=== PATIENT | male | born 1955 | race African-American/Black ===

== ENCOUNTER 2016-09-02 10:44 | Emergency (ER) | payer OTHER ==
[2016-09-02 10:49] VITALS: BP 160/89; PULSE 73; TEMP 99; BMI 31.4
--- NOTE | 2016-09-02 11:27 | PDOC ---
History of Present Illness - General Chief Complaint: Pain, Acute Stated Complaint: LEFT SHOULDER PAIN Time Seen by Provider: 09/02/16 10:48 History Source: Patient Exam Limitations: No Limitations - History of Present Illness Initial Comments: 09/02/16 11:14 61 y/o male with acute worsening of left shoulder pain. 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 Pain is described as burning in nature and is localized to the left deltoid and and left AC joint region. He had an initial injury to the same shoulder approximately 7 years ago due to the same mechanism. Over the years it has progressively gotten worse and occasionally awakens him from sleep but usually resolves rather quickly. Pain today is worse than previous and hasn' t resolved. PMH:NIDDM PSH: Meds:Ada Thompson ALL: PCN Social: No EtOH or tobacco GENERAL/CONSTITUTIONAL: No: fever, chills, weakness, loss of appetite. MUSCULOSKELETAL: Yes: left shoulder pain SKIN: No: lesions, pallor, rash or easy bruising. GENERAL: The patient is in no acute distress. HEAD: Normal with no signs of trauma. EXTREMITIES: (+) left shoulder pain NEUROLOGICAL: Cranial nerves II through XII grossly intact. Normal speech. No focal neurological deficits. MUSCULOSKELETAL: (+) left shoulder pain, (+) abduction (+) adduction, SKIN: no erythema 09/02/16 11:56 Past History - Past Medical History Allergies/Adverse Reactions: Allergies Allergy/AdvReac Type Severity Reaction Status Date / Time Penicillins Allergy Verified 09/02/16 10:45 Home Medications: Ambulatory Orders Acetaminophen W/ Codeine #3 [Tylenol # 3 -] 1 tab PO Q6H PRN #15 tablet MDD 4 Canagliflozin [Invokana] 100 mg PO DAILY 09/02/16 Methocarbamol [Robaxin -] 500 mg PO TID PRN #21 tablet 09/02/16 Diabetes: Yes HTN: Yes Hypercholesterolemia: Yes - Psycho/Social/Smoking Cessation Hx Anxiety: No Suicidal Ideation: No Smoking Status: Yes Smoking History: Never smoked Number of Cigarettes Smoked Daily: 0 Hx Alcohol Use: No Drug/Substance Use Hx: No Substance Use Type: None *Physical Exam - Vital Signs Last Vital Signs Temp Pulse Resp BP Pulse Ox 99 F 73 17 160/89 98 09/02/16 10:45 09/02/16 10:45 09/02/16 10:45 09/02/16 10:45 09/02/16 10:45 Medical Decision Making - Medical Decision Making 09/02/16 12:00 Left shoulder x ray Examination consistent with possible rotator cuff injury Pt has appointment with Orthopedist in 4 days I have implored him to keep this appointment Return to the ER for any other concerns or complaints *DC/Admit/Observation/Transfer Diagnosis at time of Disposition: Shoulder injury Qualifiers: Encounter type: initial encounter Laterality: left Qualified Code(s): S49.92XA - Unspecified injury of left shoulder and upper arm, initial encounter - Discharge Dispostion Disposition: HOME Condition at time of disposition: Stable Admit: No - Patient Instructions Printed Discharge Instructions: DI for Shoulder Sprain, DI for Shoulder Pain Additional Instructions: Return to the emergency department immediately with ANY new, persistent or worsening symptoms. Continue any medications as previously prescribed by your physician. You should follow up with your primary doctor as soon as possible regarding today's emergency department visit. . Please make sure your doctor reviews the results of your emergency evaluation. Thank you for coming to the [facility] today for your care. It was a pleasure to see you today. Please note that your evaluation is INCOMPLETE until you follow-up with your doctor. - Post Discharge Activity Work/School Note: Back to Work
== END 2016-09-02 12:12 | disposition home or self-care (01) ==
LOC: FER 10:44
DX: S49.92XA Unspecified injury of left shoulder and upper arm, initial encounter (principal); X58.XXXA Exposure to other specified factors, initial encounter; Y93.89 Activity, other specified; Y92.410 Unspecified street and highway as the place of occurrence of the external cause; Y99.0 Civilian activity done for income or pay; E11.9 Type 2 diabetes mellitus without complications; I10 Essential (primary) hypertension; E78.00 Pure hypercholesterolemia, unspecified
CPT/HCPCS: 73030-TC-LT; 99281-25

== ENCOUNTER 2018-02-19 11:34 | Emergency (ER) | payer OTHER, BC ==
[2018-02-19 12:02] VITALS: BP 165/83; PULSE 72; TEMP 98.9; BMI 32.3
[2018-02-19] MEDS ORDERED: ACETAMINOPHEN 500 MG TABLET (FP) PO ONE (12:04)
--- NOTE | 2018-02-19 12:04 | PDOC ---
History of Present Illness - General Chief Complaint: Injury Stated Complaint: RIGHT HAND INJURY Time Seen by Provider: 02/19/18 11:55 History Source: Patient Exam Limitations: No Limitations - History of Present Illness Initial Comments: 02/19/18 11:56 This is a 62 YOM with h/o NIDDM and bilateral shoulder replacement last year with pins indwelling now, [id number], works with garbage/recycling, who presents about 30 minutes s/p work-related injury (right hand laceration). He got the right palm caught between a garbage can and the garbage truck and suffered a flap-shaped laceration which is about 1.5 cm in length. He states that the cut likely got dirty and he did not have the ability to rinse it out or wash it until he arrived here. He has slight numbness to the tip of the right 5th finger which is the side of the palm that the laceration is on. He denies any additional injuries sustained as a result of this incident. He denies any other recent symptoms of illness. Past History - Past Medical History Allergies/Adverse Reactions: Allergies Allergy/AdvReac Type Severity Reaction Status Date / Time Penicillins Allergy Verified 02/19/18 11:47 Home Medications: Ambulatory Orders Canagliflozin [Invokana] 100 mg PO DAILY 09/02/16 Amlodipine Besylate [Norvasc -] 5 mg PO DAILY 02/19/18 Linagliptin/Metformin HCl [Jentadueto 2.5 mg-1000 mg Tab] 1 each PO BID Diabetes: Yes HTN: Yes Hypercholesterolemia: Yes - Suicide/Smoking/Psychosocial Hx Smoking Status: Yes Smoking History: Never smoked Number of Cigarettes Smoked Daily: 0 Hx Alcohol Use: No Drug/Substance Use Hx: No Substance Use Type: None Review of Systems - Review of Systems Able to Perform ROS?: Yes Constitutional: No: Chills, Fever, Unexplained wgt Loss HEENTM: No: Nose Congestion, Throat Pain Respiratory: No: Cough, Shortness of Breath Cardiac (ROS): No: Chest Pain, Palpitations ABD/GI: No: Constipated, Diarrhea, Nausea, Vomiting : No: Burning, Dysuria Musculoskeletal: No: Back Pain, Neck Pain Integumentary: Yes: Other (right palm small laceration). No: Bruising, Rash Neurological: Yes: Numbness (minimal to right 5th finger). No: Headache, Tingling, Weakness, Dizziness Endocrine: No: Unexplained Weight Gain, Unexplained Weight Loss *Physical Exam - Vital Signs Initial Vital Signs Temp Pulse Resp BP Pulse Ox 98.9 F 72 16 165/83 100 02/19/18 11:36 02/19/18 11:36 02/19/18 11:36 02/19/18 11:36 02/19/18 11:36 02/19/18 12:06 GENERAL: nontoxic and well-appearing pleasant adult male, nourished, A/Ox4, no acute distress, speaking in full sentences, answers questions appropriately, appears comfortable HEENT: PERRLA, EOMI, moist mucous membranes, no posterior pharyngeal erythema, no tonsillar swelling or exudates, no cervical lymphadenopathy NECK: No midline ttp, no spinal stepoff or deformity, full ROM, supple CARDIOVASCULAR: Regular rate and rhythm, normal S1S2, MGR, radial and DP pulses 2+ and symmetric, capillary refill <2 seconds, extremities warm and well- perfused Chest wall: Normal appearance, no rash, no bruising, no costal stepoff or deformity, nontender to compression LUNGS/RESPIRATORY: No respiratory distress, normal and symmetric chest movements during respirations, lungs CTA bilaterally, equal breath sounds, no cyanosis, no nail clubbing GI/ABDOMEN: Normal symmetric appearance, normoactive bowel sounds, soft, no tenderness to palpation, no midline pulsatile masses, no palpated organomegaly BACK: No midline ttp or stepoff or deformity of thoracic or lumbar spine EXTREMITIES: distal pulses 2+, warm and well-perfused, no LE edema SKIN: Right mid-hypothenar eminence with flap laceration with total laceration length of 2.7 cm, flap tissue appears slightly pale but viable, skin otherwise warm and dry, no pallor, no jaundice, no bruising, no rash, no skin breakdown NEUROLOGICAL: GCS 15, CN II-XII grossly intact, ambulating with normal gait, moving all extremities, 5/5 strength proximally and distally, no facial droop, minimally decreased sensation right 5th finger pad but good cap refill, no decreased sensation Procedures - Laceration/Wound Repair Right Anterior Hand 1st digit Wound Length: 2.6 to 5.0 cm Wound Explored: clean, no foreign body present Wound's Depth, Shape: flap Irrigated w/ Saline: Yes Betadine Prep: No Anesthesia: 1% Lidocaine Amount of Anesthetic (ccs): 2 Wound Repaired With: Sutures Suture Size/Type: 4:0, nylon Number of Sutures: 5 Progress: 02/19/18 13:16 Patient tolerated well, hemostasis achieved, good approximation of edges, no complications Medical Decision Making - Medical Decision Making 02/19/18 12:09 Pt p/w laceration to the right palm sustained while at work. No e/o tendon, ligament, or bony injury. No obvious FB or debris. Last tDaP was 2012. Initial Vital Signs Temp Pulse Resp BP Pulse Ox 98.9 F 72 16 165/83 100 02/19/18 11:36 02/19/18 11:36 02/19/18 11:36 02/19/18 11:36 02/19/18 11:36 Exam: As noted in Physical Exam section. DDX IBNLT: Simple skin/soft tissue laceration, tendon/ligament involvement, bony involvement, larger blood vessel injury, retained FB, wound contamination with risk for infection, etc. W/U ordered: XR to r/o FB and bony involvement TX ordered: None initially (though lac will be repaired) XR: No FB, no fracture or other bony involvement. Laceration numbed, cleaned, repaired without issue as noted in Procedures section. Hemostasis achieved, good approximation, Bacitracin applied and wound dressed. 02/19/18 13:16 The Pts laceration has been repaired without issue, ppx abx not indicated. Workup is not concerning for emergency-level pathology at this time. The Pt is appropriate for discharge with close outpatient follow up. They are comfortable with this plan and will follow up with their primary care provider in 1-3 days. He is given specific instructions to care for his wound repair. Work note is given as requested. He will follow up with [facility] as well. Specific return precautions are discussed and they will come back to the ER if necessary. *DC/Admit/Observation/Transfer Diagnosis at time of Disposition: Work related injury Laceration of palm Qualifiers: Encounter type: initial encounter Laterality: right Qualified Code(s): S61.411A - Laceration without foreign body of right hand, initial encounter - Discharge Dispostion Disposition: HOME Condition at time of disposition: Stable Decision to Admit order: No - Referrals Referrals: Radha Browne MD [Primary Care Provider] - - Patient Instructions Printed Discharge Instructions: DI for Laceration Repair -- Simple Additional Instructions: YOU WERE SEEN IN THE ER FOR A SKIN LACERATION. WE DID AN EXAM, IMAGING STUDIES, CLEANED AND REPAIRED THE LACERATION, AND MADE SURE YOUR TETANUS VACCINATION WAS UP TO DATE (IT ALREADY WAS). AFTER OUR ASSESSMENT, WE DO NOT BELIEVE YOU ARE HAVING A MEDICAL EMERGENCY AT THIS TIME, AND WE BELIEVE YOU ARE SAFE TO GO HOME. PLEASE READ THE INFORMATION IN THIS PACKET ON HOW TO CARE FOR YOUR LACERATION. KEEP THE DRESSING ON YOUR WOUND FOR 24 HOURS AND KEEP THIS DRESSING CLEAN AND DRY. AFTER 24 HOURS, YOU CAN TAKE THE DRESSING OFF AND YOU CAN SHOWER AND GET THE WOUND WET, BUT DO NOT SCRUB THE WOUND AND DO NOT SOAK IT IN WATER. DO NOT GO SWIMMING OR TAKE A BATH OR SUBMERGE THE WOUND IN STANDING WATER. PUT A THIN LAYER OF ANTIBIOTIC OINTMENT ON THE WOUND ONCE IN THE MORNING AND ONCE IN THE EVENING. PLEASE FOLLOW UP WITH YOUR PRIMARY CARE PROVIDER TO HAVE THE SUTURES REMOVED, OR RETURN HERE TO THE ER TO HAVE THEM REMOVED. IF YOU HAVE ANY NEW OR WORSENING SYMPTOMS, ESPECIALLY INCREASING PAIN AND REDNESS TO THE AREA OR OTHER SIGNS OF INFECTION LIKE FEVER, PLEASE COME BACK TO THE ER AT ANY TIME ( 24 HOURS A DAY). IF YOU ARE HAVING SEVERE OR LIFE THREATENING SYMPTOMS, OR SYMPTOMS THAT MAKE IT UNSAFE TO DRIVE OR HAVE SOMEONE DRIVE YOU, PLEASE CALL 911. - Post Discharge Activity Forms/Work/School Notes: Back to Work
[2018-02-19] MEDS ORDERED: ACETAMINOPHEN 325 MG TABLET (FP) ONE (12:09)
--- NOTE | 2018-02-19 12:12 | PDOC ---
Attending Attestation - Resident Resident Name: Lissy Fagan - ED Attending Attestation I have performed the following: I have examined & evaluated the patient, The case was reviewed & discussed with the resident, I agree w/resident's findings & plan, Exceptions are as noted - HPI HPI: 02/19/18 12:07 62yo M hx NIDDM, HTN presents to the ED with R palm laceration. Pt reporting numbness just to tip of R 5th finger. No other injuries. Denies F/C, CP/SOB. Last tdap 5yrs ago. - Physicial Exam PE: 02/19/18 12:08 RUE: 0.75x0.75cm flap hemostatic laceration to hypothenar eminence. Normal sensation in R hand, including finger tips. Normal strength with all finger abduction. Able to give thumbs up, okay sign and adduct thump. 2+ radial pulse. WWP. - Medical Decision Making 02/19/18 12:11 62yo M presents to the ED with L palmar lac. Tdap UTD. Will obtain XR to r/o FB , then irrigate and repair lac. 02/19/18 13:01 XR neg for FB Lac cleaned out, repaired by Dr. Fagan. See her note for details Pt feels well. Scar counseling provided I discussed the physical exam findings, ancillary test results and final diagnoses with the patient. I answered all of the patient's questions. The patient was satisfied with the care received and felt comfortable with the discharge plan and treatment plan. The patient will call their primary care physician within 24 hours to arrange follow-up and will return to the Emergency Department with any new, persistent or worsening symptoms.
[2018-02-19] MEDS ORDERED: predniSONE 20 MG TABLET (UD) ONE (12:43)
[2018-02-19] MEDS ORDERED: ALBUTEROL SO4 2.5/IPRATROPIUM 0.5 INH SOL 3 ML VIAL.NEB. NEB ONE (12:43)
[2018-02-19] MEDS ORDERED: predniSONE 10 MG TABLET (UD) ONE (12:43)
== END 2018-02-19 13:21 | disposition home or self-care (01) ==
LOC: FER 11:34
PROC: 0HQFXZZ Repair Right Hand Skin, External Approach (ICD-10-PCS; principal; 2018-02-19)
DX: S61.411A Laceration without foreign body of right hand, initial encounter (principal); W22.8XXA Striking against or struck by other objects, initial encounter; Y93.89 Activity, other specified; Y92.410 Unspecified street and highway as the place of occurrence of the external cause; Y99.0 Civilian activity done for income or pay; E11.9 Type 2 diabetes mellitus without complications; I10 Essential (primary) hypertension; E78.00 Pure hypercholesterolemia, unspecified
CPT/HCPCS: 73130-TC-RT-FY; 99282-25

== ENCOUNTER → 2018-09-26 | Day surgery (SDC) | payer BC ==
[~2018-09-26] MED LIST: LIDOCAINE HCL/PF 2% SDV 5ML VIAL ONE; PROPOFOL 20 ML ONE
[2018-09-26 09:14] VITALS: BMI 32.3
[2018-09-26 11:03] VITALS: TEMP 98.2
[2018-09-26 11:18] VITALS: BP 144/79; PULSE 70
== END | disposition home or self-care (01) ==
LOC: FASU-ENDO 08:41
PROVIDERS: ATTEND Internal Medicine Gastroenterology
PROC: 0DJD8ZZ Inspection of Lower Intestinal Tract, Via Natural or Artificial Opening Endoscopic (ICD-10-PCS; principal; 2018-09-26 10:21)
DX: Z86.010 Personal history of colon polyps (principal); K64.8 Other hemorrhoids
CPT/HCPCS: 82962

== ENCOUNTER 2019-01-30 08:26 | Day surgery (SDC) | payer BC ==
[2018-11-30 15:20] VITALS: BMI 32.3
[2019-01-30] MEDS ORDERED: LIDOCAINE HCL/PF 2% SDV 5ML VIAL ONE (11:29)
[2019-01-30] MEDS ORDERED: PROPOFOL 20 ML ONE (11:29)
[2019-01-30 13:25] VITALS: TEMP 97.6
[2019-01-30 13:29] VITALS: BP 153/92; PULSE 60
--- NOTE | 2019-02-01 18:45 | PATH ---
Surgical Pathology Report Patient Name: KOBY EDDY [facility]. Rec. #: [id number] /Age/Gender: 1955 (Age: 63) / M Account: [id number] Location: [facility] Taken: 01/30/2019 Received: 01/30/2019 Reported: 02/01/2019 Physicians: Nelda Olivarez M.D. Specimen(s) Received A: POLYPECTOMY PROXIMAL DESCENDING COLON B: POLYPECOMY DESCENDING COLON Clinical History Surveillance colonoscopy Postoperative diagnosis: colon polyps, hemorrhoids Final Diagnosis A. PROXIMAL DESCENDING COLON, POLYPECTOMY: TUBULAR ADENOMA, FRAGMENTS. B. DESCENDING COLON, POLYPECTOMY: TUBULAR ADENOMA. Electronically Signed Nelda De León M.D. Gross Description A. Received in formalin, labeled "proximal descending colon polypectomy" are 5 radford, irregular portions of soft tissue ranging in size from 0.2-0.7 cm. in greatest dimension. Base of the polyps are inked in blue. The specimens are submitted in toto in 2 cassettes as follows: 1- largest polyp, bisected, 2- smaller polyps. B. Received in formalin, labeled "descending colon polypectomy" are 3 radford, irregular portions of soft tissue ranging in size from 0.1-0.4 cm. in greatest dimension. The specimens are submitted in toto in one cassette. MLSZ/01/31/2019 sanml/01/31/2019
== END 2019-01-30 13:40 | disposition home or self-care (01) ==
LOC: FASU-ENDO 08:26
PROVIDERS: ATTEND Internal Medicine Gastroenterology
PROC: 0DBM8ZX Excision of Descending Colon, Via Natural or Artificial Opening Endoscopic, Diagnostic (ICD-10-PCS; 2019-01-30)
PROC: 0DBK8ZX Excision of Ascending Colon, Via Natural or Artificial Opening Endoscopic, Diagnostic (ICD-10-PCS; principal; 2019-01-30 11:35)
DX: Z86.010 Personal history of colon polyps (principal); D12.4 Benign neoplasm of descending colon; K64.1 Second degree hemorrhoids
CPT/HCPCS: 82962; 88305-TC

== ENCOUNTER 2021-11-17 09:03 | Day surgery (SDC) | payer OTHER, BC ==
[2021-11-10 13:56] VITALS: BMI 29.8
[2021-11-17 09:18] VITALS: TEMP 97.7
[2021-11-17 12:08] VITALS: PULSE 60
[2021-11-17 12:20] VITALS: BP 118/48
== END 2021-11-17 12:41 | disposition home or self-care (01) ==
LOC: FASU-ENDO 09:03
PROVIDERS: ATTEND Internal Medicine Gastroenterology
PROC: 0DJD8ZZ Inspection of Lower Intestinal Tract, Via Natural or Artificial Opening Endoscopic (ICD-10-PCS; principal; 2021-11-17 11:44)
DX: Z12.11 Encounter for screening for malignant neoplasm of colon (principal); Z86.010 Personal history of colon polyps; K64.1 Second degree hemorrhoids
CPT/HCPCS: 82962

== ENCOUNTER 2022-06-02 04:31 | Day surgery (SDC) | payer OTHER, BC ==
[2022-05-26 16:26] VITALS: BMI 29.0
[2022-06-02] MEDS ORDERED: FENTANYL CITRATE/PF 50 MCG/ML VIAL ONE (10:44)
[2022-06-02] MEDS ORDERED: MIDAZOLAM HCL 2 MG/2 ML SINGLE DOSE VIAL ONE (10:44)
[2022-06-02] MEDS ORDERED: FENTANYL CITRATE/PF 50 MCG/ML VIAL IVPUSH ONE (11:05)
[2022-06-02 12:06] VITALS: BP 186/79; PULSE 61; RESP 20; TEMP 98.1
== END 2022-06-02 13:00 | disposition home or self-care (01) ==
LOC: JRADIR 04:31
PROVIDERS: ATTEND Internal Medicine
PROC: 0TB13ZX Excision of Left Kidney, Percutaneous Approach, Diagnostic (ICD-10-PCS; principal; 2022-06-02)
DX: I12.0 Hypertensive chronic kidney disease with stage 5 chronic kidney disease or end stage renal disease (principal); Z53.8 Procedure and treatment not carried out for other reasons
CPT/HCPCS: 50200

== ENCOUNTER 2023-05-19 11:00 | Inpatient (IN) | payer OTHER, BC ==
[2023-05-19 11:59] LABS: BASO % 1.2 % (0-2.0); EOS % 1.6 % (0-4.5); HEMATOCRIT 19.1 % (35.4-49); LYMPH % 9.8 % (8-40); MCH 26.4 pg (25.7-33.7); MEAN CELL VOLUME 82.5 fl (80-96); MEAN PLT VOLUME 7.8 fl (7.5-11.1); MONO % 10.6 % (3.8-10.2); NEUT % 76.8 % (42.8-82.8); PLATELET COUNT 255 10^3/uL (134-434); RBC 2.32 M/mm3 (4.00-5.60); RDW 17.1 % (11.9-15.9); WHITE BLOOD COUNT 5.9 K/mm3 (4.0-10.0)
[2023-05-19 12:06] LABS: HEMOGLOBIN 6.1 GM/dL (11.7-16.9); INR 1.19 (0.83-1.09); PROTHROMBIN TIME (PATIENT) 13.8 SEC (9.7-13.0)
[2023-05-19 12:09] LABS: ACTIVATED PTT 31.2 SECONDS (25.2-36.5)
[2023-05-19 12:43] LABS: CHLORIDE 114 mmol/L (98-107); POTASSIUM 5.1 mmol/L (3.5-5.1); SODIUM 139 mmol/L (136-145)
[2023-05-19 12:47] LABS: ALBUMIN 2.9 g/dl (3.4-5.0); ANION GAP 8 mmol/L (4-13); BLOOD UREA NITROGEN 80.6 mg/dL (7-18); CO2 17 mmol/L (21-32); GLUCOSE,RANDOM 131 mg/dL (74-106)
[2023-05-19 12:50] LABS: SGOT/AST 9 U/L (15-37); SGPT/ALT 10 U/L (13-61)
[2023-05-19 12:51] LABS: ALK PHOS 73 U/L (45-117); BILIRUBIN,TOTAL 0.2 mg/dL (0.2-1); TOT PROT 5.9 g/dl (6.4-8.2)
[2023-05-19 13:06] LABS: CALCIUM 6.8 mg/dL (8.5-10.1); CREATININE 10.2 mg/dL (0.55-1.3)
[2023-05-19] MEDS ORDERED: ACETAMINOPHEN 325 MG TABLET (FP) PO PRN (14:50)
[2023-05-19] MEDS ORDERED: hydrALAZINE HCL 50 MG TABLET (FP) PO ONE (17:30)
[2023-05-19 18:07] VITALS: BMI 29.2
[2023-05-19] MEDS ORDERED: CALCIUM GLUCONATE 10% - 1,000 MG/10 ML VIAL IVPB ONE (18:20)
[2023-05-19] MEDS ORDERED: hydrALAZINE HCL 20 MG/ML VIAL IVPUSH ONE (20:45)
[2023-05-19] MEDS: hydrALAZINE HCL 50 MG TABLET (FP) PO SCH (21:44)
[2023-05-19] MEDS ORDERED: HEPARIN NA (PORCINE) 5,000 UNITS/ML 1ML VIAL SQ SCH (22:00)
[2023-05-20] MEDS: hydrALAZINE HCL 50 MG TABLET (FP) PO SCH ×3 (06:36→23:07)
[2023-05-20 07:16] LABS: EOS % 1.8 % (0-4.5); HEMATOCRIT 24.3 % (35.4-49); HEMOGLOBIN 8.1 GM/dL (11.7-16.9); LYMPH % 9.1 % (8-40); MCH 27.7 pg (25.7-33.7); MCHC 33.2 g/dl (32.0-35.9); MEAN CELL VOLUME 83.5 fl (80-96); MEAN PLT VOLUME 8.1 fl (7.5-11.1); MONO % 10.2 % (3.8-10.2); NEUT % 77.9 % (42.8-82.8); PLATELET COUNT 230 10^3/uL (134-434); RBC 2.92 M/mm3 (4.00-5.60); WHITE BLOOD COUNT 6.8 K/mm3 (4.0-10.0)
[2023-05-20] MEDS ORDERED: ACETAMINOPHEN 325 MG TABLET (FP) PO PRN ×2 (07:25→14:08)
[2023-05-20 07:31] LABS: CHLORIDE 113 mmol/L (98-107); POTASSIUM 5.5 mmol/L (3.5-5.1); SODIUM 138 mmol/L (136-145)
[2023-05-20 07:55] LABS: ALBUMIN 2.8 g/dl (3.4-5.0); ANION GAP 9 mmol/L (4-13); BLOOD UREA NITROGEN 77.6 mg/dL (7-18); CO2 15 mmol/L (21-32); GLUCOSE,RANDOM 89 mg/dL (74-106); MAGNESIUM 1.8 mg/dL (1.8-2.4)
[2023-05-20 07:58] LABS: PHOSPHOROUS 6.6 mg/dL (2.5-4.9); SGOT/AST 11 U/L (15-37); SGPT/ALT 8 U/L (13-61)
[2023-05-20 07:59] LABS: BILIRUBIN,TOTAL 0.4 mg/dL (0.2-1); TOT PROT 5.8 g/dl (6.4-8.2)
[2023-05-20 08:01] LABS: ALK PHOS 73 U/L (45-117)
[2023-05-20 08:48] LABS: CREATININE 10.1 mg/dL (0.55-1.3); IRON SERUM 64 ug/dL (50-175); TOTAL IRON BINDING CAPACITY 171 ug/dL (250-450)
[2023-05-20] MEDS ORDERED: NIFEdipine E.R. 30 MG TABLET PO SCH (10:00)
[2023-05-20] MEDS ORDERED: HEPARIN NA (PORCINE) 5,000 UNITS/ML 1ML VIAL SQ SCH (10:00)
[2023-05-20] MEDS ORDERED: SODIUM ZIRCONIUM CYCLOSILICATE (LOKELMA) 5 GM PACKET PO SCH (12:00)
[2023-05-20] MEDS ORDERED: SODIUM CHLORIDE 250 ML IV PRN ×2 (12:27→14:08)
[2023-05-20] MEDS ORDERED: LIDOCAINE HCL 1%, 10 MG/ML (20ML VIAL) ONE (12:57)
[2023-05-20] MEDS ORDERED: LIDOCAINE HCL/PF 2% SDV 5ML VIAL ONE (12:58)
[2023-05-20] MEDS ORDERED: ONDANSETRON 4 MG/2 ML VIAL ONE (12:58)
[2023-05-20] MEDS ORDERED: MIDAZOLAM HCL 2 MG/2 ML SINGLE DOSE VIAL ONE (12:58)
[2023-05-20] MEDS ORDERED: PROPOFOL 20 ML ONE (12:58)
[2023-05-20] MEDS ORDERED: ceFAZolin SODIUM 1 GM VIAL ONE (13:19)
[2023-05-20] MEDS ORDERED: ceFAZolin SODIUM 1 GM VIAL IVPB ONE (13:19)
[2023-05-20] MEDS ORDERED: LIDOCAINE HCL 1%, 10 MG/ML (20ML VIAL) INF ONE (13:40)
[2023-05-20] MEDS ORDERED: ONDANSETRON 4 MG/2 ML VIAL IVPUSH PRN (13:52)
[2023-05-20] MEDS ORDERED: oxyCODONE HCL 5 MG TABLET PO PRN (13:52)
[2023-05-20] MEDS ORDERED: SODIUM CHLORIDE 1,000 ML IV SCH (14:00)
[2023-05-20] MEDS ORDERED: CALCIUM ACETATE 667 MG CAPSULE (FP) PO SCH (17:30)
[2023-05-20] MEDS: CALCIUM ACETATE 667 MG CAPSULE (FP) PO SCH (17:36)
[2023-05-20] MEDS: HEPARIN NA (PORCINE) 5,000 UNITS/ML 1ML VIAL SQ SCH (23:07)
[2023-05-21] MEDS: hydrALAZINE HCL 50 MG TABLET (FP) PO SCH ×3 (06:59→21:58)
[2023-05-21 07:02] LABS: HEMATOCRIT 25.2 % (35.4-49); HEMOGLOBIN 8.5 GM/dL (11.7-16.9); MCH 27.7 pg (25.7-33.7); MCHC 33.8 g/dl (32.0-35.9); MEAN CELL VOLUME 81.9 fl (80-96); MEAN PLT VOLUME 7.3 fl (7.5-11.1); PLATELET COUNT 198 10^3/uL (134-434); RBC 3.07 M/mm3 (4.00-5.60); WHITE BLOOD COUNT 7.5 K/mm3 (4.0-10.0)
[2023-05-21 07:20] LABS: CHLORIDE 110 mmol/L (98-107); POTASSIUM 4.9 mmol/L (3.5-5.1); SODIUM 139 mmol/L (136-145)
[2023-05-21 07:23] LABS: ALBUMIN 2.7 g/dl (3.4-5.0); ANION GAP 8 mmol/L (4-13); BLOOD UREA NITROGEN 56.3 mg/dL (7-18); CO2 22 mmol/L (21-32); GLUCOSE,RANDOM 75 mg/dL (74-106)
[2023-05-21 07:26] LABS: SGOT/AST 11 U/L (15-37); SGPT/ALT 8 U/L (13-61)
[2023-05-21 07:27] LABS: TOT PROT 5.6 g/dl (6.4-8.2)
[2023-05-21 07:29] LABS: ALK PHOS 72 U/L (45-117)
[2023-05-21 07:38] LABS: BILIRUBIN,TOTAL 0.4 mg/dL (0.2-1); CALCIUM 6.9 mg/dL (8.5-10.1)
[2023-05-21] MEDS: CALCIUM ACETATE 667 MG CAPSULE (FP) PO SCH ×3 (09:09→17:28)
[2023-05-21] MEDS: HEPARIN NA (PORCINE) 5,000 UNITS/ML 1ML VIAL SQ SCH ×2 (09:10→21:58)
[2023-05-21] MEDS ORDERED: NIFEdipine E.R. 30 MG TABLET PO SCH (10:00)
[2023-05-21] MEDS ORDERED: SODIUM ZIRCONIUM CYCLOSILICATE (LOKELMA) 5 GM PACKET PO SCH (12:00)
[2023-05-21] MEDS ORDERED: NIFEdipine E.R. 30 MG TABLET PO ONE (13:45)
[2023-05-21] MEDS: FERROUS GLUCONATE 324 MG TAB (FP) PO SCH (14:01)
[2023-05-22] MEDS: hydrALAZINE HCL 50 MG TABLET (FP) PO SCH ×3 (06:20→21:39)
[2023-05-22] MEDS: CALCIUM ACETATE 667 MG CAPSULE (FP) PO SCH ×3 (08:13→17:26)
[2023-05-22] MEDS ORDERED: SODIUM CHLORIDE 250 ML IV PRN (09:35)
[2023-05-22] MEDS ORDERED: EPOETIN ALFA-EPBX 10,000 UNIT/ML VIAL IVPUSH ONE (10:00)
[2023-05-22] MEDS: HEPARIN NA (PORCINE) 5,000 UNITS/ML 1ML VIAL SQ SCH ×2 (10:00→21:39)
[2023-05-22 10:05] LABS: HEMATOCRIT 23.5 % (35.4-49); HEMOGLOBIN 7.9 GM/dL (11.7-16.9); MCH 27.8 pg (25.7-33.7); MCHC 33.6 g/dl (32.0-35.9); MEAN CELL VOLUME 82.7 fl (80-96); MEAN PLT VOLUME 7.9 fl (7.5-11.1); PLATELET COUNT 188 10^3/uL (134-434); RBC 2.84 M/mm3 (4.00-5.60); RDW 16.7 % (11.9-15.9); WHITE BLOOD COUNT 7.5 K/mm3 (4.0-10.0)
[2023-05-22 10:21] LABS: POTASSIUM 4.4 mmol/L (3.5-5.1)
[2023-05-22 10:24] LABS: BLOOD UREA NITROGEN 50.6 mg/dL (7-18); CALCIUM 7.4 mg/dL (8.5-10.1)
[2023-05-22 10:28] LABS: CREATININE 7.1 mg/dL (0.55-1.3)
[2023-05-22] MEDS: NIFEdipine E.R 60 MG TABLET PO SCH (10:46)
[2023-05-22] MEDS: LOSARTAN POTASSIUM 50 MG TABLET PO SCH (10:47)
[2023-05-22] MEDS: FERROUS GLUCONATE 324 MG TAB (FP) PO SCH (12:26)
[2023-05-23] MEDS: hydrALAZINE HCL 50 MG TABLET (FP) PO SCH ×3 (05:32→21:41)
[2023-05-23] MEDS: CALCIUM ACETATE 667 MG CAPSULE (FP) PO SCH ×3 (08:54→17:16)
[2023-05-23] MEDS: NIFEdipine E.R 60 MG TABLET PO SCH (10:58)
[2023-05-23] MEDS: FERROUS GLUCONATE 324 MG TAB (FP) PO SCH (10:58)
[2023-05-23] MEDS: LOSARTAN POTASSIUM 50 MG TABLET PO SCH (10:58)
[2023-05-23] MEDS: HEPARIN NA (PORCINE) 5,000 UNITS/ML 1ML VIAL SQ SCH ×3 (10:59→21:41)
[2023-05-23] MEDS ORDERED: SODIUM CHLORIDE 250 ML IV PRN (13:48)
[2023-05-23 14:00] LABS: PH,URINE 7.5 (5.0-8.0); URINE APPEARANCE Clear; URINE BILIRUBIN Negative (NEGATIVE); URINE COLOR Yellow; URINE GLUCOSE (UA) Negative (NEGATIVE); URINE KETONE Negative (NEGATIVE); URINE LEUK ESTERASE Negative (NEGATIVE); URINE NITRITE Negative (NEGATIVE); URINE PROTEIN 3+ (NEGATIVE); URINE UROBILINOGEN 0.2 mg/dL (0.2-1.0)
[2023-05-23 14:10] LABS: URINE WBC 0-3 /uL (0-25.8)
[2023-05-24] MEDS: hydrALAZINE HCL 50 MG TABLET (FP) PO SCH ×3 (05:43→21:37)
[2023-05-24 08:19] LABS: BASO % 0.7 % (0-2.0); EOS % 1.9 % (0-4.5); HEMATOCRIT 24.6 % (35.4-49); HEMOGLOBIN 8.1 GM/dL (11.7-16.9); LYMPH % 9.5 % (8-40); MCH 27.3 pg (25.7-33.7); MCHC 32.8 g/dl (32.0-35.9); MEAN CELL VOLUME 83.4 fl (80-96); MEAN PLT VOLUME 8.4 fl (7.5-11.1); MONO % 12.4 % (3.8-10.2); NEUT % 75.5 % (42.8-82.8); PLATELET COUNT 189 10^3/uL (134-434); RBC 2.95 M/mm3 (4.00-5.60); RDW 16.2 % (11.9-15.9); WHITE BLOOD COUNT 7.8 K/mm3 (4.0-10.0)
[2023-05-24] MEDS: CALCIUM ACETATE 667 MG CAPSULE (FP) PO SCH ×3 (08:24→16:32)
[2023-05-24 08:44] LABS: POTASSIUM 5.2 mmol/L (3.5-5.1)
[2023-05-24 08:55] LABS: ALBUMIN 2.8 g/dl (3.4-5.0); BLOOD UREA NITROGEN 52.6 mg/dL (7-18)
[2023-05-24 08:57] LABS: CALCIUM 7.6 mg/dL (8.5-10.1)
[2023-05-24 08:59] LABS: CREATININE 7.3 mg/dL (0.55-1.3); TOT PROT 5.9 g/dl (6.4-8.2)
[2023-05-24] MEDS ORDERED: HEPARIN NA (PORCINE) 5,000 UNITS/ML 1ML VIAL IVPUSH ONE (09:00)
[2023-05-24 09:01] LABS: BILIRUBIN,TOTAL 0.3 mg/dL (0.2-1)
[2023-05-24] MEDS ORDERED: EPOETIN ALFA-EPBX 10,000 UNIT/ML VIAL IVPUSH ONE (10:00)
[2023-05-24] MEDS: NIFEdipine E.R 60 MG TABLET PO SCH (13:45)
[2023-05-24] MEDS: LOSARTAN POTASSIUM 50 MG TABLET PO SCH (13:45)
[2023-05-24] MEDS: HEPARIN NA (PORCINE) 5,000 UNITS/ML 1ML VIAL SQ SCH ×2 (13:45→21:37)
[2023-05-24] MEDS: FERROUS GLUCONATE 324 MG TAB (FP) PO SCH (13:45)
[2023-05-25] MEDS: hydrALAZINE HCL 50 MG TABLET (FP) PO SCH ×3 (06:01→21:52)
[2023-05-25 07:25] LABS: BASO % 0.8 % (0-2.0); EOS % 2.1 % (0-4.5); HEMATOCRIT 22.8 % (35.4-49); HEMOGLOBIN 7.6 GM/dL (11.7-16.9); MCH 27.5 pg (25.7-33.7); MCHC 33.1 g/dl (32.0-35.9); MEAN CELL VOLUME 83.1 fl (80-96); MEAN PLT VOLUME 8.2 fl (7.5-11.1); MONO % 12.8 % (3.8-10.2); NEUT % 73.3 % (42.8-82.8); PLATELET COUNT 173 10^3/uL (134-434); RBC 2.75 M/mm3 (4.00-5.60); RDW 16.7 % (11.9-15.9); WHITE BLOOD COUNT 7.1 K/mm3 (4.0-10.0)
[2023-05-25 07:36] LABS: POTASSIUM 4.8 mmol/L (3.5-5.1)
[2023-05-25 07:49] LABS: ALBUMIN 2.6 g/dl (3.4-5.0); BLOOD UREA NITROGEN 42.8 mg/dL (7-18); CALCIUM 7.4 mg/dL (8.5-10.1)
[2023-05-25 07:53] LABS: CREATININE 5.7 mg/dL (0.55-1.3)
[2023-05-25 07:54] LABS: BILIRUBIN,TOTAL 0.2 mg/dL (0.2-1); TOT PROT 5.6 g/dl (6.4-8.2)
[2023-05-25] MEDS ORDERED: HEPARIN NA (PORCINE) 5,000 UNITS/ML 1ML VIAL ONE ×2 (08:44→11:27)
[2023-05-25] MEDS ORDERED: LIDOCAINE HCL 1%, 10 MG/ML (20ML VIAL) ONE (08:44)
[2023-05-25] MEDS ORDERED: POVIDONE-IODINE OINTMENT 10% - 28.4 GM TUBE ONE (08:44)
[2023-05-25] MEDS: CALCIUM ACETATE 667 MG CAPSULE (FP) PO SCH ×3 (09:37→17:39)
[2023-05-25] MEDS ORDERED: MIDAZOLAM HCL 2 MG/2 ML SINGLE DOSE VIAL ONE ×2 (09:54→11:51)
[2023-05-25] MEDS ORDERED: ceFAZolin SODIUM 1 GM VIAL IVPB ONE (10:54)
[2023-05-25] MEDS ORDERED: HEPARIN NA (PORCINE) 5,000 UNITS/ML 1ML VIAL SQ ONE ×2 (10:55→11:29)
[2023-05-25] MEDS ORDERED: hydrALAZINE HCL 20 MG/ML VIAL ONE (11:37)
[2023-05-25] MEDS ORDERED: ACETAMINOPHEN 325 MG TABLET (FP) PO PRN (12:29)
[2023-05-25] MEDS: FERROUS GLUCONATE 324 MG TAB (FP) PO SCH (13:58)
[2023-05-25] MEDS: NIFEdipine E.R 60 MG TABLET PO SCH (13:58)
[2023-05-25] MEDS: HEPARIN NA (PORCINE) 5,000 UNITS/ML 1ML VIAL SQ SCH ×2 (13:58→21:52)
[2023-05-25] MEDS: LOSARTAN POTASSIUM 50 MG TABLET PO SCH (13:58)
[2023-05-26] MEDS: hydrALAZINE HCL 50 MG TABLET (FP) PO SCH (05:42)
[2023-05-26 09:49] LABS: HEMATOCRIT 22.1 % (35.4-49); HEMOGLOBIN 7.2 GM/dL (11.7-16.9); MCH 27.2 pg (25.7-33.7); MCHC 32.7 g/dl (32.0-35.9); MEAN CELL VOLUME 83.2 fl (80-96); PLATELET COUNT 171 10^3/uL (134-434); RBC 2.66 M/mm3 (4.00-5.60); RDW 16.5 % (11.9-15.9); WHITE BLOOD COUNT 6.8 K/mm3 (4.0-10.0)
[2023-05-26] MEDS ORDERED: NIFEdipine E.R. 90 MG TABLET PO SCH (10:00)
[2023-05-26] MEDS ORDERED: FERROUS GLUCONATE 324 MG TAB (FP) PO SCH (10:00)
[2023-05-26] MEDS ORDERED: LOSARTAN POTASSIUM 50 MG TABLET PO SCH (10:00)
[2023-05-26] MEDS ORDERED: NIFEdipine E.R 60 MG TABLET PO SCH (10:00)
[2023-05-26 10:03] LABS: CHLORIDE 103 mmol/L (98-107); POTASSIUM 4.1 mmol/L (3.5-5.1); SODIUM 138 mmol/L (136-145)
[2023-05-26 10:05] LABS: ALBUMIN 2.6 g/dl (3.4-5.0); ANION GAP 7 mmol/L (4-13); BLOOD UREA NITROGEN 37.3 mg/dL (7-18); CALCIUM 7.6 mg/dL (8.5-10.1); CO2 28 mmol/L (21-32); GLUCOSE,RANDOM 122 mg/dL (74-106)
[2023-05-26 10:07] LABS: CREATININE 4.8 mg/dL (0.55-1.3); SGOT/AST 12 U/L (15-37)
[2023-05-26 10:09] LABS: BILIRUBIN,TOTAL 0.2 mg/dL (0.2-1); TOT PROT 5.4 g/dl (6.4-8.2)
[2023-05-26 10:11] LABS: ALK PHOS 73 U/L (45-117)
[2023-05-26 10:54] LABS: SGPT/ALT < 6 U/L (13-61)
[2023-05-26] MEDS ORDERED: SODIUM CHLORIDE 250 ML IV PRN (12:00)
[2023-05-26] MEDS ORDERED: EPOETIN ALFA-EPBX 10,000 UNIT/ML VIAL IVPUSH ONE (12:00)
[2023-05-26] MEDS: CALCIUM ACETATE 667 MG CAPSULE (FP) PO SCH ×3 (12:26→18:12)
[2023-05-26] MEDS: HEPARIN NA (PORCINE) 5,000 UNITS/ML 1ML VIAL SQ SCH (12:26)
[2023-05-26 12:54] VITALS: RESP 18
[2023-05-26] MEDS ORDERED: hydrALAZINE HCL 50 MG TABLET (FP) PO SCH (13:47)
[2023-05-26 14:42] VITALS: TEMP 98.6
[2023-05-26] MEDS ORDERED: hydrALAZINE HCL 50 MG TABLET (FP) PO ONE (17:45)
[2023-05-26 18:26] VITALS: PULSE 74
[2023-05-26 19:30] VITALS: BP 150/83
== END 2023-05-26 20:24 | disposition home or self-care (01) | DRG 673 ==
LOC: JER 11:00 → JERBED 12:08 → J5S 15:29 → J4W 18:47
PROVIDERS: ADMIT Internal Medicine; ATTEND Internal Medicine
PROC: 30233N1 Transfusion of Nonautologous Red Blood Cells into Peripheral Vein, Percutaneous Approach (ICD-10-PCS; 2023-05-19)
PROC: 02H633Z Insertion of Infusion Device into Right Atrium, Percutaneous Approach (ICD-10-PCS; 2023-05-20)
PROC: 03180AD Bypass Left Brachial Artery to Upper Arm Vein with Autologous Arterial Tissue, Open Approach (ICD-10-PCS; principal; 2023-05-25 10:00)
PROC: 5A1D70Z Performance of Urinary Filtration, Intermittent, Less than 6 Hours Per Day (ICD-10-PCS; 2023-05-26)
DX: I12.0 Hypertensive chronic kidney disease with stage 5 chronic kidney disease or end stage renal disease (principal); N18.6 End stage renal disease; I24.89 Other forms of acute ischemic heart disease; D63.1 Anemia in chronic kidney disease
CPT/HCPCS: 0241U-QW; 36415; 36430; 71045-TC-FY; 76000-TC-FY; 76775-TC; 80048; 80053; 81003; 82272; 82310; 82728; 82962; 83540; 83550; 83735; 83970; 84100; 84484; 85025; 85027; 85610; 85730; 86704; 86803; 86850; 86900; 86901; 86922; 87086; 87340; 87517; 93005; 93010; 93306-TC; 93985; 94760; 99285-25; C1750; J1644; P9038; P9058; Q5106

== ENCOUNTER 2023-07-13 14:36 | Observation (INO) | payer OTHER, BC ==
[2023-07-13 15:53] LABS: BASO % 0.9 % (0-2.0); EOS % 2.2 % (0-4.5); HEMATOCRIT 21.2 % (35.4-49); LYMPH % 13.1 % (8-40); MCH 27.9 pg (25.7-33.7); MCHC 33.3 g/dl (32.0-35.9); MEAN CELL VOLUME 83.9 fl (80-96); MONO % 8.9 % (3.8-10.2); NEUT % 74.9 % (42.8-82.8); PLATELET COUNT 230 10^3/uL (134-434); RBC 2.52 M/mm3 (4.00-5.60); RDW 16.6 % (11.9-15.9); WHITE BLOOD COUNT 7.1 K/mm3 (4.0-10.0)
[2023-07-13 16:12] LABS: POTASSIUM 3.9 mmol/L (3.5-5.1)
[2023-07-13 16:13] VITALS: BMI 29.5
[2023-07-13 16:14] LABS: ALBUMIN 3.1 g/dl (3.4-5.0); BLOOD UREA NITROGEN 27.6 mg/dL (7-18); CALCIUM 7.7 mg/dL (8.5-10.1)
[2023-07-13 16:17] LABS: CREATININE 4.8 mg/dL (0.55-1.3)
[2023-07-13 16:19] LABS: BILIRUBIN,TOTAL 0.4 mg/dL (0.2-1); TOT PROT 6.2 g/dl (6.4-8.2)
[2023-07-13] MEDS ORDERED: ACETAMINOPHEN 325 MG TABLET (FP) ONE (18:21)
[2023-07-13] MEDS: CALCIUM ACETATE 667 MG CAPSULE (FP) PO SCH (18:31)
[2023-07-13] MEDS: ACETAMINOPHEN 325 MG TABLET (FP) PO ONE (18:31)
[2023-07-13] MEDS ORDERED: hydrALAZINE HCL 25 MG TABLET (FP) ONE (22:17)
[2023-07-13] MEDS ORDERED: hydrALAZINE HCL 50 MG TABLET (FP) ONE (22:18)
[2023-07-13] MEDS: hydrALAZINE HCL 50 MG TABLET (FP) PO SCH (22:25)
[2023-07-14 08:00] VITALS: PULSE 66
[2023-07-14] MEDS: LOSARTAN POTASSIUM 50 MG TABLET PO SCH (10:52)
[2023-07-14] MEDS ORDERED: NIFEdipine E.R. 30 MG TABLET PO SCH (10:57)
[2023-07-14 11:28] LABS: BASO % 0.8 % (0-2.0); EOS % 1.7 % (0-4.5); HEMATOCRIT 22.4 % (35.4-49); HEMOGLOBIN 7.5 GM/dL (11.7-16.9); LYMPH % 11.5 % (8-40); MCH 28.5 pg (25.7-33.7); MCHC 33.7 g/dl (32.0-35.9); MEAN CELL VOLUME 84.5 fl (80-96); MEAN PLT VOLUME 7.6 fl (7.5-11.1); MONO % 9.6 % (3.8-10.2); NEUT % 76.4 % (42.8-82.8); PLATELET COUNT 206 10^3/uL (134-434); RBC 2.65 M/mm3 (4.00-5.60); RDW 16.4 % (11.9-15.9); WHITE BLOOD COUNT 7.7 K/mm3 (4.0-10.0)
[2023-07-14] MEDS: NIFEdipine E.R. 90 MG TABLET PO SCH (12:11)
[2023-07-14] MEDS: NIFEdipine E.R 60 MG TABLET PO SCH (12:26)
[2023-07-14 12:35] VITALS: BP 160/69; RESP 18; TEMP 99
== END 2023-07-14 13:15 | disposition home or self-care (01) ==
LOC: JER 14:36 → JERBED 16:31 → J5S 07-14 05:50
PROVIDERS: ADMIT Internal Medicine; ATTEND Internal Medicine
PROC: 30233N1 Transfusion of Nonautologous Red Blood Cells into Peripheral Vein, Percutaneous Approach (ICD-10-PCS; principal; 2023-07-13)
DX: D64.89 Other specified anemias (principal); E11.22 Type 2 diabetes mellitus with diabetic chronic kidney disease; I12.0 Hypertensive chronic kidney disease with stage 5 chronic kidney disease or end stage renal disease; N18.6 End stage renal disease; Z99.2 Dependence on renal dialysis; Z87.891 Personal history of nicotine dependence; Z88.0 Allergy status to penicillin
CPT/HCPCS: 36415; 36430; 71045-TC-FY; 80053; 85025; 86850; 86900; 86901; 86922; 93005; 93010; 99285-25; G0378; P9058

== ENCOUNTER 2023-07-29 10:24 | Emergency (ER) | payer OTHER, BC ==
[2023-07-29 10:37] VITALS: RESP 18; TEMP 97; BMI 29.5
[2023-07-29] MEDS ORDERED: METOCLOPRAMIDE HCL INJECTION 10 MG/2 ML VIAL ONE ×2 (12:28→18:38)
[2023-07-29] MEDS: METOCLOPRAMIDE HCL INJECTION 10 MG/2 ML VIAL IVPUSH ONE ×2 (12:48→18:34)
[2023-07-29 12:56] LABS: BASO % 0.4 % (0-2.0); EOS % 1.2 % (0-4.5); HEMATOCRIT 23.6 % (35.4-49); HEMOGLOBIN 7.7 GM/dL (11.7-16.9); LYMPH % 4.6 % (8-40); MCH 27.6 pg (25.7-33.7); MCHC 32.8 g/dl (32.0-35.9); MEAN CELL VOLUME 84.2 fl (80-96); MEAN PLT VOLUME 8.1 fl (7.5-11.1); MONO % 10.8 % (3.8-10.2); PLATELET COUNT 239 10^3/uL (134-434); RDW 17.3 % (11.9-15.9); WHITE BLOOD COUNT 12.9 K/mm3 (4.0-10.0)
[2023-07-29 13:16] LABS: POTASSIUM 3.6 mmol/L (3.5-5.1)
[2023-07-29 13:23] LABS: BLOOD UREA NITROGEN 22.6 mg/dL (7-18); CALCIUM 8.8 mg/dL (8.5-10.1)
[2023-07-29 13:24] LABS: ALBUMIN 2.7 g/dl (3.4-5.0); MAGNESIUM 2.2 mg/dL (1.8-2.4)
[2023-07-29 13:26] LABS: CREATININE 3.9 mg/dL (0.55-1.3)
[2023-07-29 13:28] LABS: BILIRUBIN,TOTAL 0.4 mg/dL (0.2-1); TOT PROT 6.4 g/dl (6.4-8.2)
[2023-07-29] MEDS ORDERED: PANTOPRAZOLE SODIUM 40 MG VIAL ONE (14:19)
[2023-07-29] MEDS: PANTOPRAZOLE SODIUM 40 MG VIAL IVPUSH ONE (14:26)
[2023-07-29 15:26] VITALS: BP 139/59; PULSE 67
[2023-07-29] MEDS: chlorproMAZINE HCL 25 MG TABLET PO ONE (17:06)
== END 2023-07-29 18:56 | disposition home or self-care (01) ==
LOC: JER 10:24
PROC: 3E033GC Introduction of Other Therapeutic Substance into Peripheral Vein, Percutaneous Approach (ICD-10-PCS; principal; 2023-07-29)
PROC: 3E033GC Introduction of Other Therapeutic Substance into Peripheral Vein, Percutaneous Approach (ICD-10-PCS; 2023-07-29)
PROC: 3E033GC Introduction of Other Therapeutic Substance into Peripheral Vein, Percutaneous Approach (ICD-10-PCS; 2023-07-29)
DX: R06.6 Hiccough (principal)
CPT/HCPCS: 36415; 71046-TC-FY; 80053; 83690; 83735; 84100; 84484; 85025; 93005; 93010; 99285-25

== ENCOUNTER 2023-08-19 07:47 | Observation (INO) | payer OTHER, BC ==
[2023-08-19 10:42] LABS: BASO % 0.8 % (0-2.0); EOS % 2.6 % (0-4.5); HEMATOCRIT 21.9 % (35.4-49); HEMOGLOBIN 7.3 GM/dL (11.7-16.9); LYMPH % 11.8 % (8-40); MCH 28.4 pg (25.7-33.7); MCHC 33.2 g/dl (32.0-35.9); MEAN CELL VOLUME 85.6 fl (80-96); MEAN PLT VOLUME 7.3 fl (7.5-11.1); NEUT % 72.8 % (42.8-82.8); PLATELET COUNT 214 10^3/uL (134-434); RBC 2.56 M/mm3 (4.00-5.60); RDW 18.2 % (11.9-15.9); WHITE BLOOD COUNT 6.4 K/mm3 (4.0-10.0)
[2023-08-19 10:49] LABS: INR 1.16 (0.83-1.09); PROTHROMBIN TIME (PATIENT) 13.4 SEC (9.7-13.0)
[2023-08-19 10:51] LABS: ACTIVATED PTT 31.2 SECONDS (25.2-36.5)
[2023-08-19 11:10] LABS: POTASSIUM 4.2 mmol/L (3.5-5.1)
[2023-08-19 11:12] LABS: CALCIUM 9.2 mg/dL (8.5-10.1)
[2023-08-19 11:13] LABS: BLOOD UREA NITROGEN 27.7 mg/dL (7-18); MAGNESIUM 2.1 mg/dL (1.8-2.4)
[2023-08-19 11:16] LABS: CREATININE 4.7 mg/dL (0.55-1.3); PHOSPHOROUS 2.2 mg/dL (2.5-4.9)
[2023-08-19 11:18] LABS: BILIRUBIN,TOTAL 0.4 mg/dL (0.2-1); TOT PROT 6.4 g/dl (6.4-8.2)
[2023-08-19] MEDS ORDERED: METOCLOPRAMIDE HCL 10 MG TABLET (FP) PO PRN (15:26)
[2023-08-19] MEDS: INSULIN ASPART SLIDING SCALE (NOVOLOG) 1 VIAL SQ SCH (16:58)
[2023-08-19] MEDS: CALCIUM ACETATE 667 MG CAPSULE (FP) PO SCH (17:16)
[2023-08-19] MEDS: hydrALAZINE HCL 25 MG TABLET (FP) PO SCH (21:30)
[2023-08-20 08:35] LABS: BASO % 0.8 % (0-2.0); EOS % 2.5 % (0-4.5); HEMATOCRIT 23.6 % (35.4-49); LYMPH % 11.4 % (8-40); MCH 28.8 pg (25.7-33.7); MEAN CELL VOLUME 84.6 fl (80-96); MEAN PLT VOLUME 7.4 fl (7.5-11.1); NEUT % 75.3 % (42.8-82.8); PLATELET COUNT 215 10^3/uL (134-434); RBC 2.79 M/mm3 (4.00-5.60); RDW 17.7 % (11.9-15.9); WHITE BLOOD COUNT 7.5 K/mm3 (4.0-10.0)
[2023-08-20 08:40] LABS: CHLORIDE 108 mmol/L (98-107); POTASSIUM 4.7 mmol/L (3.5-5.1); SODIUM 139 mmol/L (136-145)
[2023-08-20 08:47] LABS: CALCIUM 8.1 mg/dL (8.5-10.1)
[2023-08-20 08:48] LABS: ALBUMIN 2.7 g/dl (3.4-5.0); ANION GAP 6 mmol/L (4-13); BLOOD UREA NITROGEN 37.9 mg/dL (7-18); CO2 24 mmol/L (21-32); GLUCOSE,RANDOM 84 mg/dL (74-106)
[2023-08-20 08:51] LABS: CREATININE 6.6 mg/dL (0.55-1.3); SGOT/AST 7 U/L (15-37); SGPT/ALT < 6 U/L (13-61)
[2023-08-20 08:52] LABS: BILIRUBIN,TOTAL 0.4 mg/dL (0.2-1)
[2023-08-20 08:53] LABS: TOT PROT 5.7 g/dl (6.4-8.2)
[2023-08-20 08:54] LABS: ALK PHOS 68 U/L (45-117)
[2023-08-20] MEDS: NIFEdipine E.R. 90 MG TABLET PO SCH (09:12)
[2023-08-20] MEDS: LOSARTAN POTASSIUM 50 MG TABLET PO SCH (09:12)
[2023-08-20] MEDS: FERROUS GLUCONATE 324 MG TAB (FP) PO SCH (09:12)
[2023-08-20 10:03] VITALS: RESP 18
[2023-08-20 15:47] VITALS: BMI 28.3
[2023-08-20 16:47] VITALS: BP 150/62; PULSE 66; TEMP 98
== END 2023-08-20 18:20 | disposition home or self-care (01) ==
LOC: JER 07:47 → JERBED 12:29 → J6S 16:17
PROVIDERS: ADMIT Internal Medicine; ATTEND Internal Medicine
PROC: 30233N1 Transfusion of Nonautologous Red Blood Cells into Peripheral Vein, Percutaneous Approach (ICD-10-PCS; principal; 2023-08-19)
DX: D64.9 Anemia, unspecified (principal); I12.0 Hypertensive chronic kidney disease with stage 5 chronic kidney disease or end stage renal disease; E11.22 Type 2 diabetes mellitus with diabetic chronic kidney disease; N18.6 End stage renal disease; Z99.2 Dependence on renal dialysis; Z88.0 Allergy status to penicillin; Z87.891 Personal history of nicotine dependence
CPT/HCPCS: 36415; 36430; 76775-TC; 80053; 82272; 82962; 83735; 84100; 85025; 85610; 85730; 86850; 86900; 86901; 86922; 87086; 87186; 93005; 93010; 99285-25; G0378; P9058

== ENCOUNTER 2025-01-31 06:51 | Day surgery (SDC) | payer OTHER, BC ==
[2025-01-29 14:40] VITALS: BMI 29.0
[2025-01-31] MEDS ORDERED: LIDOCAINE HCL/PF 2% SDV 5ML VIAL ONE (08:00)
[2025-01-31] MEDS ORDERED: PROPOFOL 120 ML ONE (08:00)
[2025-01-31 10:18] VITALS: TEMP 97.8
[2025-01-31 12:28] VITALS: RESP 17
[2025-01-31 12:32] VITALS: BP 144/72; PULSE 63
== END 2025-01-31 10:50 | disposition home or self-care (01) ==
LOC: FASU-ENDO 06:51
PROVIDERS: ATTEND Internal Medicine Gastroenterology
PROC: 0DBM8ZX Excision of Descending Colon, Via Natural or Artificial Opening Endoscopic, Diagnostic (ICD-10-PCS; 2025-01-31)
PROC: 0DBM8ZX Excision of Descending Colon, Via Natural or Artificial Opening Endoscopic, Diagnostic (ICD-10-PCS; 2025-01-31)
PROC: 0DBK8ZX Excision of Ascending Colon, Via Natural or Artificial Opening Endoscopic, Diagnostic (ICD-10-PCS; principal; 2025-01-31 09:22)
DX: Z12.11 Encounter for screening for malignant neoplasm of colon (principal); D12.2 Benign neoplasm of ascending colon; D12.4 Benign neoplasm of descending colon; K57.30 Diverticulosis of large intestine without perforation or abscess without bleeding; K64.9 Unspecified hemorrhoids
CPT/HCPCS: 82962; 88305-TC